=== PATIENT | male | born 1990 | race Asian ===

== ENCOUNTER 2022-12-11 15:26 | Emergency (ER) | payer OTHER ==
[2022-12-11 15:35] VITALS: BP 131/81
[2022-12-11] MEDS ORDERED: LIDOCAINE PATCH 5% TOP STA (15:57)
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
== END 2022-12-11 16:23 | disposition home or self-care (01) ==
LOC: ED 15:26
DX: S29.012A Strain of muscle and tendon of back wall of thorax, initial encounter (principal); V49.40XA Driver injured in collision with unspecified motor vehicles in traffic accident, initial encounter
CPT/HCPCS: 99282; 99283; A9270

== ENCOUNTER 2023-01-06 12:57 | Outpatient (CLI) | payer OTHER ==
--- NOTE | 2023-01-06 17:20 | MRI Report ---
PROCEDURE: LUMBAR SPINE WO INDICATIONS: LOW BACK PAIN TECHNIQUE: Noncontrast sagittal T1 spin echo and T2 fast echo, sagittal STIR, axial T1 and T2 fast spin echo thr ough the lumbar spine. In cases with scoliosis, additional coronal T2 fast spin echo may be performe d. COMPARISON: None. FINDINGS: Image quality: Excellent. Alignment and Curvature: There is normal bony alignment. Bone Marrow: Marrow is of normal overall signal. No acute vertebral body compression fractures. Spinal Cord: Conus medullaris terminates at the L1 level. Visualized cord demonstrates normal signa l and size. Paraspinous Soft Tissues: No paravertebral masses. T12-L1: Normal in appearance. L1-L2: Normal in appearance. L2-L3: Normal in appearance. L3-L4: Normal in appearance. L4-L5: Normal in appearance. L5-S1: Asymmetric posterior disc bulge with annular fissure. This makes contact with the approachi ng S1 nerve roots. IMPRESSION: Asymmetric posterior disc bulge with annular fissure at L5-S1, making contact with the exiting S1 ner ve roots. Reviewed by: Luis Butterfield on 01/06/2023 5:19 PM PDT Approved by: Luis Butterfield on 01/06/2023 5:19 PM PDT Station ID: [id number]
== END 2023-01-06 12:58 | disposition home or self-care (01) ==
LOC: DI 12:57
DX: M54.50 Low back pain, unspecified (principal); M51.37 Other intervertebral disc degeneration, lumbosacral region

== ENCOUNTER 2024-02-08 13:28 | Outpatient (CLI) | payer OTHER ==
--- NOTE | 2024-02-08 14:57 | MRI Report ---
PROCEDURE: Lumbar Spine WO INDICATIONS: RADICULOPATHY TECHNIQUE: Noncontrast sagittal T1 spin echo and T2 fast echo, sagittal STIR, axial T1 and T2 fast spin echo thr ough the lumbar spine. In cases with scoliosis, additional coronal T2 fast spin echo may be performe d. COMPARISON: 01/06/2023 FINDINGS: Image quality: Excellent. Alignment and Curvature: There is normal bony alignment. Bone Marrow: Marrow is of normal overall signal. No acute vertebral body compression fractures. Spinal Cord: Conus medullaris terminates at the L1 level. Visualized cord demonstrates normal signa l and size. Paraspinous Soft Tissues: No paravertebral masses. T12-L1: Normal in appearance. L1-L2: Normal in appearance. L2-L3: Normal in appearance. L3-L4: Normal in appearance. L4-L5: Unchanged. Minimal disc bulge. Early facet hypertrophy. No canal stenosis or foraminal steno sis. L5-S1: Unchanged. As before, there is posterior annulus tear plus disc bulge which abuts the S1 ner ve roots in the lateral recesses. No significant central canal stenosis. Early lateral facet hypertro phy. No foraminal stenosis. IMPRESSION: 1. Unchanged findings. 2. Mild lower lumbar facet arthropathy. 3. Annulus tear plus disc bulge at L5-S1. Disc material abuts the bilateral S1 nerve roots in the lat eral recesses. 4. No significant canal stenosis or foraminal stenosis. Reviewed by: Nick Vásquez MD on 02/08/2024 2:56 PM PDT Approved by: Nick Vásquez MD on 02/08/2024 2:56 PM PDT Station ID: [id number]
== END 2024-02-08 13:29 | disposition home or self-care (01) ==
LOC: DI 13:28
PROVIDERS: ATTEND Preventive Medicine Aerospace Medicine
DX: M51.17 Intervertebral disc disorders with radiculopathy, lumbosacral region (principal); M47.27 Other spondylosis with radiculopathy, lumbosacral region